=== PATIENT | female | born 1965 | race Two or more races ===

== ENCOUNTER → 2023-09-05 | Emergency (ER) | payer OTHER ==
[~2023-09-05] VITALS: Ht 167.6 cm; Wt 81.6 kg
[~2023-09-05] MED LIST: HYDROCODONE/APAP 5/325MG TABLET ONE; IBUP-1953 PO; IBUPROFEN 600 MG TABLET ONE; METH-647 PO
[2023-09-05] MEDS: HYDROCODONE/APAP 5/325MG TABLET PO ONE (08:08)
[2023-09-05] MEDS: IBUPROFEN 600 MG TABLET PO ONE (08:08)
[2023-09-05 08:09] VITALS: BP 134/66; TEMP 98.2; O2SAT 98
== END | disposition home or self-care (01) ==
LOC: ER 07:51
DX: S13.4XXA Sprain of ligaments of cervical spine, initial encounter (principal); V49.9XXA Car occupant (driver) (passenger) injured in unspecified traffic accident, initial encounter; Y93.89 Activity, other specified; Y92.411 Interstate highway as the place of occurrence of the external cause; Y99.8 Other external cause status
CPT/HCPCS: 70450-TC; 71250-TC; 72125-TC; 72128-TC